=== PATIENT | female | born 1965 | race Two or more races ===

== ENCOUNTER 2020-01-26 05:18 | Emergency (ER) | payer BC ==
[~2020-01-26] VITALS: Ht 160 cm; Wt 108.0 kg
[2020-01-26] MEDS ORDERED: IV NORMAL SALINE 1000ML BAG 1,000 ML IV SCH (06:15)
[2020-01-26] MEDS ORDERED: ONDANSETRON PF 4 MG/2 ML VIAL. IV ONE (06:15)
--- NOTE | 2020-01-26 06:19 | PHYS DOC ---
Past Medical History Past Medical History: Hyperthyroid Past Surgical History: Appendectomy, Additional Past Surgical Histo: CARPAL TUNNEL Smoking Status: Current Some Day Smoker Alcohol Use: None Adult General Chief Complaint Chief Complaint: ABDOMINAL PAIN HPI HPI Patient is a 54-year-old female who presents to the emergency department for evaluation of left lower quadrant pain, which began yesterday and seems to have worsened over the past 24 hours. She's had some nausea, but no vomiting. She has not had any diarrhea, bloody stools, dysuria, urinary frequency, or hesitancy. She denies any fevers or chills. She denies any chest pain or shortness of breath. Movement seems to worsen her pain. There are no alleviating factors to her symptoms. Review of Systems Review of Systems Constitutional: Denies fever or chills [] Eyes: Denies change in visual acuity, redness, or eye pain [] HENT: Denies nasal congestion or sore throat [] Respiratory: Denies cough or shortness of breath [] Cardiovascular: The patient denies any shortness of breath, chest pain, palpitations, or orthopnea[] GI: No additional information not addressed in HPI [] : Denies dysuria or hematuria [] Musculoskeletal: Denies back pain or joint pain [] Integument: Denies rash or skin lesions [] Neurologic: Denies headache, focal weakness or sensory changes [] Endocrine: Denies polyuria or polydipsia [] All other systems were reviewed and found to be within normal limits, except as documented in this note. Current Medications Current Medications Current Medications Medications (Trade) Dose Ordered Sig/[facility] Start Time Stop Time Status Last Admin Dose Admin Ciprofloxacin (Cipro) 500 mg 1X ONCE 01/26/20 08:15 01/26/20 08:16 Info (CONTRAST GIVEN -- Rx MONITORING) 1 each PRN DAILY PRN 01/26/20 07:00 01/28/20 06:59 Iohexol (Omnipaque 300 Mg/ml) 75 ml 1X ONCE 01/26/20 07:00 01/26/20 07:02 DC 01/26/20 07:10 75 ML Metronidazole (Flagyl) 500 mg 1X ONCE 01/26/20 08:15 01/26/20 08:16 Morphine Sulfate (Morphine Sulfate) 4 mg PRN Q15MIN PRN 01/26/20 06:15 01/27/20 06:14 01/26/20 07:19 4 MG Ondansetron HCl (Zofran) 4 mg 1X ONCE 01/26/20 06:15 01/26/20 06:19 DC 01/26/20 06:22 4 MG Sodium Chloride 1,000 ml @ 1,000 mls/hr Q1H 01/26/20 06:15 01/26/20 07:14 DC 01/26/20 06:22 1,000 MLS/HR Allergies Allergies Allergies Coded Allergies Type Severity Reaction Last Updated Verified latex Allergy Mild ITCHY RASH 01/26/20 Yes Physical Exam Physical Exam PHYSICAL EXAM: CONSTITUTIONAL: Well developed, well nourished HEAD: normocephalic, atraumatic EENT: PERRL, EOMI. Conjunctivae normal color, sclerae non-icteric; moist mucous membranes. NECK: Supple, non-tender; no meningismus. LUNGS: Lungs CTA, breathing even and unlabored. Normal air movement. HEART: Regular rate and rhythm, no murmur CHEST: No deformity; non-tender ABDOMEN: The abdomen is soft, there is tenderness to palpation of the left mid and lower abdomen, without rebound or guarding. The abdomen is soft and non- tender, no masses or bruits. EXTREM: Normal ROM; no deformity, no calf tenderness. Normal pulses palpable in all extremities. There is no pedal edema. SKIN: No rash; no diaphoresis NEURO: Alert; normal speech and cognition; CN's grossly intact; strength grossly intact without focal deficit. BACK: No CVA TTP. Current Patient Data Vital Signs Vital Signs Date Time Temp Pulse Resp B/P (MAP) Pulse Ox O2 Delivery O2 Flow Rate FiO2 01/26/20 07:19 17 99 Room Air 01/26/20 05:32 98.4 58 149/80 (103) 98.4 Lab Values Laboratory Tests Test 01/26/20 06:05 01/26/20 06:10 Urine Collection Type Unknown Urine Color Yellow Urine Clarity Clear Urine pH 5.5 Urine Specific [place] 1.015 Urine Protein Negative mg/dL (NEG-TRACE) Urine Glucose (UA) Negative mg/dL (NEG) Urine Ketones (Stick) Negative mg/dL (NEG) Urine Blood Moderate (NEG) Urine Nitrite Negative (NEG) Urine Bilirubin Negative (NEG) Urine Urobilinogen Dipstick 0.2 mg/dL (0.2 mg/dL) Urine Leukocyte Esterase Negative (NEG) Urine RBC Occ /HPF (0-2) Urine WBC 1-4 /HPF (0-4) Urine Squamous Epithelial Cells Mod /LPF Urine Bacteria 0 /HPF (0-FEW) White Blood Count 6.2 x10^3/uL (4.0-11.0) Red Blood Count 4.15 x10^6/uL (3.50-5.40) Hemoglobin 13.2 g/dL (12.0-15.5) Hematocrit 38.5 % (36.0-47.0) Mean Corpuscular Volume 93 fL (79-100) Mean Corpuscular Hemoglobin 32 pg (25-35) Mean Corpuscular Hemoglobin Concent 34 g/dL (31-37) Red Cell Distribution Width 14.2 % (11.5-14.5) Platelet Count 219 x10^3/uL (140-400) Neutrophils (%) (Auto) 53 % (31-73) Lymphocytes (%) (Auto) 34 % (24-48) Monocytes (%) (Auto) 7 % (0-9) Eosinophils (%) (Auto) 6 % (0-3) H Basophils (%) (Auto) 1 % (0-3) Neutrophils # (Auto) 3.3 x10^3/uL (1.8-7.7) Lymphocytes # (Auto) 2.1 x10^3/uL (1.0-4.8) Monocytes # (Auto) 0.4 x10^3/uL (0.0-1.1) Eosinophils # (Auto) 0.3 x10^3/uL (0.0-0.7) Basophils # (Auto) 0.0 x10^3/uL (0.0-0.2) Sodium Level 141 mmol/L (136-145) Potassium Level 3.9 mmol/L (3.5-5.1) Chloride Level 104 mmol/L (98-107) Carbon Dioxide Level 26 mmol/L (21-32) Anion Gap 11 (6-14) Blood Urea Nitrogen 15 mg/dL (7-20) Creatinine 0.7 mg/dL (0.6-1.0) Estimated GFR (Cockcroft-Gault) 87.5 BUN/Creatinine Ratio 21 (6-20) H Glucose Level 109 mg/dL (70-99) H Calcium Level 9.0 mg/dL (8.5-10.1) Total Bilirubin 0.2 mg/dL (0.2-1.0) Aspartate Amino Transferase (AST) 19 U/L (15-37) Alanine Aminotransferase (ALT) 27 U/L (14-59) Alkaline Phosphatase 96 U/L (46-116) Total Protein 7.1 g/dL (6.4-8.2) Albumin 3.8 g/dL (3.4-5.0) Albumin/Globulin Ratio 1.2 (1.0-1.7) Lipase 155 U/L (73-393) Laboratory Tests 01/26/20 06:10 Laboratory Tests 01/26/20 06:10 EKG EKG [] Radiology/Procedures Radiology/Procedures PROCEDURE: CT ABD PELV W/ IV CONTRST ONLY Study: CT abdomen/pelvis with intravenous contrast Indication: Left lower quadrant pain. Comparison: None. Technique: Helical CT imaging performed of the abdomen and pelvis after the intravenous administration of 75 cc Omnipaque 300 contrast. Sagittal and coronal reformats were obtained. One or more of the following individualized dose reduction techniques were utilized for this examination: 1. Automated exposure control 2. Adjustment of the mA and/or kV according to patient size 3. Use of iterative reconstruction technique. Findings: Chest: Minimal basilar volume loss. Liver: Unremarkable. Gallbladder/Biliary Tree: Unremarkable. Pancreas: Unremarkable. Spleen: Unremarkable. Adrenal Glands: Fat-containing adrenal adenoma on the left measuring approximately 1.4 cm. No follow-up imaging is needed per consensus recommendation based on imaging criteria. Kidneys/Ureters/Bladder: No concerning parenchymal abnormality. No collecting system dilatation. Unremarkable urinary bladder. Reproductive Organs: Bulbous configuration and heterogeneous increased density at the uterine fundus raising the question of underlying fibroids. No adnexal mass. Colon: Scattered diverticuli. There is very subtle short segment wall thickening and minimal haziness surrounding the distal aspect of the descending colon such as seen on image 57 series 2 which could represent very mild diverticulitis. No perforation or abscess. Appendix: No inflammatory changes seen at the expected location of the appendix. Small Bowel: Nonobstructed. Stomach: No apparent abnormality taking into consideration incomplete distention. Mild circumferential wall thickening of the distal esophagus. Vasculature: Nonaneurysmal aorta. Lymph Nodes: Within normal limits. Peritoneum and Body Wall: Fatty stranding seen along the left aspect of the aorta just above the level of the left renal artery such as on image 25 series 2. Bones: Scattered chronic osseous findings to include sclerosis along the sacroiliac joints and a prominent degenerative cyst within the superior acetabulum on the right. Miscellaneous: None. Impression: 1. Findings at the distal descending colon which could represent very mild, uncomplicated diverticulitis. 2. Suspected uterine fibroid or fibroids. 3. Faint inflammatory changes in the retroperitoneum along the left aspect of the aorta just above the level of the renal artery. The etiology of this finding is uncertain but there is no intermixed lymphadenopathy or adjacent vascular abnormality and this is overall of questionable significance. 4. Additional observations as above.[] Course & Med Decision Making Course & Med Decision Making Pertinent Labs and Imaging studies reviewed. (See chart for details) [] 8:10 AM: Patient remains stable. I discussed test results, the need for close follow-up, and return precautions. Dragon Disclaimer Dragon Disclaimer This electronic medical record was generated, in whole or in part, using a voice recognition dictation system. Departure Departure Impression: Primary Impression: Diverticulitis Disposition: 01 HOME, SELF-CARE Condition: STABLE Referrals: EDITH CARTWRIGHT MD (PCP) CAROLEE RANDHAWA MD Patient Instructions: Diverticulitis Scripts Acetaminophen With Codeine (TYLENOL WITH CODEINE #3 TABLET) 1 Each Tablet 1 TAB PO PRN Q6HRS PRN for PAIN, #15 TAB Prov: TIARA POOLE MD 01/26/20 Metronidazole (FLAGYL) 500 Mg Tablet 1 TAB PO BID, #14 TAB Prov: TIARA POOLE MD 01/26/20 Ciprofloxacin Hcl (CIPRO) 500 Mg Tablet 1 TAB PO BID, #14 TAB Prov: TIARA POOLE MD 01/26/20 TIARA POOLE MD Jan 26, 2020 06:19
[2020-01-26] MEDS: MORPHINE SULFATE 4 MG/ML VIAL. IV/SQ PRN ×2 (06:23→07:19)
[2020-01-26 06:45] LABS: BILIRUBIN,URINE NEGATIVE (NEG); CLARITY,URINE CLEAR; COLOR,URINE YELLOW; NITRITE,URINE NEGATIVE (NEG); PH,URINE 5.5; PROTEIN,URINE NEGATIVE (NEG-TRACE); UROBILINOGEN,URINE 0.2 mg/dL (0.2 mg/dL)
[2020-01-26 06:48] LABS: CREATININE 0.7 mg/dL (0.6-1.0); GFR 87.5; POTASSIUM 3.9 mmol/L (3.5-5.1)
[2020-01-26 06:50] LABS: BASO % 1 % (0-3); EOS # 0.3 x10^3/uL (0.0-0.7); EOS % 6 % (0-3); HEMATOCRIT 38.5 % (36.0-47.0); HEMOGLOBIN 13.2 g/dL (12.0-15.5); LYMPH # 2.1 x10^3/uL (1.0-4.8); LYMPH % 34 % (24-48); MEAN CORPUSCULAR HEMOGLOBIN 32 pg (25-35); MEAN CORPUSCULAR HGB CONC 34 g/dL (31-37); MEAN CORPUSCULAR VOLUME 93 fL (79-100); MONO # 0.4 x10^3/uL (0.0-1.1); MONO % 7 % (0-9); NEUT # 3.3 x10^3/uL (1.8-7.7); NEUT % 53 % (31-73); PLATELET COUNT 219 x10^3/uL (140-400); RED BLOOD COUNT 4.15 x10^6/uL (3.50-5.40); RED CELL DISTRIBUTION WIDTH 14.2 % (11.5-14.5); WHITE BLOOD COUNT 6.2 x10^3/uL (4.0-11.0)
[2020-01-26 06:53] LABS: ALBUMIN 3.8 g/dL (3.4-5.0); ALBUMIN/GLOBULIN RATIO 1.2 (1.0-1.7); TOTAL BILIRUBIN 0.2 mg/dL (0.2-1.0); TOTAL PROTEIN 7.1 g/dL (6.4-8.2)
[2020-01-26 06:58] LABS: BACTERIA,URINE 0 /HPF (0-FEW); RBC,URINE OCC /HPF (0-2); SQUAMOUS EPITHELIAL CELL,UR MOD /LPF
[2020-01-26] MEDS ORDERED: IOHEXOL 300 MG/ML 100ML VIAL. IV ONE (07:00)
[2020-01-26] MEDS ORDERED: CONTRAST GIVEN. MC PRN (07:00)
--- NOTE | 2020-01-26 07:52 | RAD ---
Study: CT abdomen/pelvis with intravenous contrast Indication: Left lower quadrant pain. Comparison: None. Technique: Helical CT imaging performed of the abdomen and pelvis after the intravenous administration of 75 cc Omnipaque 300 contrast. Sagittal and coronal reformats were obtained. One or more of the following individualized dose reduction techniques were utilized for this examination: 1. Automated exposure control 2. Adjustment of the mA and/or kV according to patient size 3. Use of iterative reconstruction technique. Findings: Chest: Minimal basilar volume loss. Liver: Unremarkable. Gallbladder/Biliary Tree: Unremarkable. Pancreas: Unremarkable. Spleen: Unremarkable. Adrenal Glands: Fat-containing adrenal adenoma on the left measuring approximately 1.4 cm. No follow-up imaging is needed per consensus recommendation based on imaging criteria. Kidneys/Ureters/Bladder: No concerning parenchymal abnormality. No collecting system dilatation. Unremarkable urinary bladder. Reproductive Organs: Bulbous configuration and heterogeneous increased density at the uterine fundus raising the question of underlying fibroids. No adnexal mass. Colon: Scattered diverticuli. There is very subtle short segment wall thickening and minimal haziness surrounding the distal aspect of the descending colon such as seen on image 57 series 2 which could represent very mild diverticulitis. No perforation or abscess. Appendix: No inflammatory changes seen at the expected location of the appendix. Small Bowel: Nonobstructed. Stomach: No apparent abnormality taking into consideration incomplete distention. Mild circumferential wall thickening of the distal esophagus. Vasculature: Nonaneurysmal aorta. Lymph Nodes: Within normal limits. Peritoneum and Body Wall: Fatty stranding seen along the left aspect of the aorta just above the level of the left renal artery such as on image 25 series 2. Bones: Scattered chronic osseous findings to include sclerosis along the sacroiliac joints and a prominent degenerative cyst within the superior acetabulum on the right. Miscellaneous: None. Impression: 1. Findings at the distal descending colon which could represent very mild, uncomplicated diverticulitis. 2. Suspected uterine fibroid or fibroids. 3. Faint inflammatory changes in the retroperitoneum along the left aspect of the aorta just above the level of the renal artery. The etiology of this finding is uncertain but there is no intermixed lymphadenopathy or adjacent vascular abnormality and this is overall of questionable significance. 4. Additional observations as above. Electronically signed by: KAREN WHITFIELD MD (01/26/2020 7:49 AM) [id number]
[2020-01-26] MEDS ORDERED: metroNIDAZOLE 500 MG TABLET PO ONE (08:15)
[2020-01-26] MEDS ORDERED: CIPROFLOXACIN HCL 250 MG TABLET. PO ONE (08:15)
[2020-01-26] MEDS ORDERED: METR500T PO (08:17)
[2020-01-26] MEDS ORDERED: CIPR500T94 PO (08:17)
[2020-01-26] MEDS ORDERED: ACET-704 PO (08:18)
[2020-01-26 08:21] VITALS: BP 124/60
== END 2020-01-26 08:30 | disposition home or self-care (01) ==
LOC: ER 05:18
DX: K57.32 Diverticulitis of large intestine without perforation or abscess without bleeding (principal); R10.32 Left lower quadrant pain; R11.0 Nausea; E03.9 Hypothyroidism, unspecified; F17.200 Nicotine dependence, unspecified, uncomplicated; Z90.89 Acquired absence of other organs; Z98.890 Other specified postprocedural states; Z91.040 Latex allergy status
CPT/HCPCS: 36415; 74177; 80053; 81001; 83690; 85025; 96374; 96375; 96376; 99285; J2270; J2405; J7030; Q9967

== ENCOUNTER → 2020-02-27 | Outpatient (CLI) | payer BC ==
[~2020-02-27] MED LIST: ACET-704 PO; CIPR500T94 PO; CONTRAST GIVEN. MC PRN; IOHEXOL 240 MG/ML 50ML VIAL. PO ONE; IOHEXOL 300 MG/ML 100ML VIAL. IV ONE; METR500T PO
--- NOTE | 2020-02-27 11:11 | RAD ---
CT scan of the abdomen and pelvis with contrast 02/27/2020 CLINICAL HISTORY: History of diverticulitis. TECHNIQUE: After the oral and intravenous administration of contrast, contiguous, 5 mm axial sections were obtained through the abdomen and pelvis. 75 cc of Omnipaque 300 were administered intravenously during this examination. One or more of the following individualized dose reduction techniques were utilized for this study: 1. Automated exposure control. 2. Adjustment of the mA and/or kV according to patient size. 3. Use of iterative reconstruction technique. FINDINGS: Comparison study is dated 01/26/2020. Images through the lung bases demonstrate minimal dependent subsegmental atelectasis bilaterally. The liver, spleen, pancreas, right adrenal gland and kidneys are within normal limits. A 1.2 cm rounded low-attenuation lesion is seen involving the left adrenal gland consistent with an adrenal adenoma. This is unchanged. The inflammatory changes in the retroperitoneum near the left renal artery seen on the previous examination have resolved. The abdominal aorta tapers normally. The gallbladder is well-distended. No free fluid or free air is seen within the abdomen. Air and stool are seen throughout the colon. The appendix is well-visualized and is within normal limits. Scattered diverticula are seen involving the descending and sigmoid colon. The inflammatory changes seen involving the distal descending colon on the previous examination have resolved. No new inflammatory changes are seen. No abnormal fluid collection is seen suggest evidence of an abscess. Images through the pelvis demonstrate the urinary bladder distended with urine. No adnexal mass is seen. Calcifications are seen within the pelvis consistent with phleboliths. No free fluid is noted. The osseous structures are unchanged. IMPRESSION: The inflammatory changes involving the distal descending colon seen on the previous study have resolved. No acute abnormality is seen. Electronically signed by: Tyrell Betts MD (02/27/2020 11:08 AM) [place] [id number]
== END ==
LOC: CT 09:09
PROVIDERS: ATTEND Internal Medicine Gastroenterology
DX: K57.30 Diverticulosis of large intestine without perforation or abscess without bleeding (principal); R93.5 Abnormal findings on diagnostic imaging of other abdominal regions, including retroperitoneum
CPT/HCPCS: 74177; Q9966; Q9967